=== PATIENT | female | born 1995 | race Caucasian/White ===

== ENCOUNTER 2017-04-06 10:38 | Emergency (ER) | payer MEDICAID ==
[~2017-04-06] VITALS: Ht 162.6 cm; Wt 87.5 kg
[2017-04-06 10:43] VITALS: BP 130/79
--- NOTE | 2017-04-06 10:48 | NUR ---
PT AMBULATED TO BED 3
--- NOTE | 2017-04-06 11:02 | NUR ---
RECEIVED PT TO ROOM 3, IN NAD. RESP EVEN AND UNLABORED. AGREE WITH TRIAGE NOTE VAGINAL BLEEDING STARTING THIS MORNING; SCANT BLOOD WHEN SHE WIPES; 6 WEEKS ; G-3 P-1 A-1 (MISCARRIAGE) HX DENIES LMP 02/20/17
--- NOTE | 2017-04-06 11:19 | NUR ---
ER MD AT BEDSIDE FOR EXAM
[2017-04-06 11:50] LABS: BASOPHILS # (AUTO) 0.2 K/uL (0.00-0.22); BASOPHILS % (AUTO) 4.2 % (0.0-2.0); EOSINOPHILS # (AUTO) 0.1 K/uL (0-0.4); EOSINOPHILS % (AUTO) 1.5 % (0.0-4.0); HEMATOCRIT 34.2 % (36-48); HEMOGLOBIN 11.4 g/dL (12.0-16.0); LYMPHOCYTES # (AUTO) 1.3 K/uL (2.5-16.5); LYMPHOCYTES % (AUTO) 26.9 % (20.5-51.1); MEAN CORPUSCULAR HEMOGLOBIN 31 pg (27-31); MEAN CORPUSCULAR HGB CONC 33 g/dL (33-37); MEAN CORPUSCULAR VOLUME 92 fL (80-94); MONOCYTES # (AUTO) 0.2 K/uL (0.8-1.0); NEUTROPHILS # (AUTO) 3.2 K/uL (1.8-7.7); NEUTROPHILS % (AUTO) 62.4 % (42.2-75.2); PLATELET COUNT (AUTO) 256 K/uL (140-450); RED BLOOD CELL COUNT(AUTO) 3.73 MIL/uL (4.20-5.40); RED CELL DISTRIBUTION WIDTH 11.4 % (11.6-13.7)
[2017-04-06 11:52] LABS: APPEARANCE,URINE CLEAR (CLEAR); BILIRUBIN,URINE NEGATIVE (NEGATIVE); BLOOD, URINE 3+ (NEGATIVE); COLOR,URINE YELLOW (YELLOW); LEUKOCYTE ESTERASE ,URINE NEGATIVE (NEGATIVE); NITRITE, URINE NEGATIVE (NEGATIVE); UGLUCOSE NEGATIVE (NEGATIVE)
[2017-04-06 11:58] LABS: RBC,URINE 3-10 (FEW) /HPF (0-5)
--- NOTE | 2017-04-06 12:56 | NUR ---
DR PANG AT BEDSIDE FOR PELVIC EXAM, FEMALE IMPROVEMENT INTERN PRESENT.
--- NOTE | 2017-04-06 12:56 | NUR ---
FEMALE BARREL RACER FOR DR. PANG DURING PELVIC EXAM
--- NOTE | 2017-04-06 13:38 | NUR ---
NO ACUTE CHNAGES IN CONDITION, VSS. WAITNG FOR DISPO
[2017-04-06 14:35] VITALS: BP 126/74
--- NOTE | 2017-04-06 14:35 | NUR ---
Patient discharged with v/s stable. Written and verbal after care instructions given and explained. Patient verbalized understanding. Ambulatory with steady gait. All questions addressed prior to discharge. Advised to follow up with PMD. PT INFORMED TO COME IN 3 DAYS FOR BLOOD TEST, VERBALIZED UNDERSTANDING. VSS
== END 2017-04-06 14:35 | disposition home or self-care (01) ==
LOC: MED 10:38
DX: O20.0 Threatened abortion (principal); Z3A.01 Less than 8 weeks gestation of pregnancy
CPT/HCPCS: 36415; 76817; 81001; 81025; 84702; 85025; 87086; 99285; Q0092

== ENCOUNTER 2017-04-09 12:16 | Emergency (ER) | payer MEDICAID ==
[~2017-04-09] VITALS: Ht 162.6 cm; Wt 89.0 kg
[2017-04-09 12:57] VITALS: BP 122/54
[2017-04-09 14:23] VITALS: BP 110/63
== END 2017-04-09 14:23 | disposition home or self-care (01) ==
LOC: MED 12:16
DX: O20.0 Threatened abortion (principal); Z3A.00 Weeks of gestation of pregnancy not specified
CPT/HCPCS: 36415; 81025; 84702; 99283

== ENCOUNTER 2017-04-13 13:45 | Emergency (ER) | payer MEDICAID ==
[~2017-04-13] VITALS: Ht 162.6 cm; Wt 86.2 kg
[2017-04-13 13:47] VITALS: BP 104/54
[2017-04-13 14:21] LABS: BASOPHILS # (AUTO) 0.2 K/uL (0.00-0.22); EOSINOPHILS # (AUTO) 0.1 K/uL (0-0.4); HEMATOCRIT 35.6 % (36-48); HEMOGLOBIN 12.5 g/dL (12.0-16.0); LYMPHOCYTES # (AUTO) 1.5 K/uL (2.5-16.5); MEAN CORPUSCULAR HEMOGLOBIN 31 pg (27-31); MEAN CORPUSCULAR HGB CONC 35 g/dL (33-37); MEAN CORPUSCULAR VOLUME 90 fL (80-94); MONOCYTES # (AUTO) 0.4 K/uL (0.8-1.0); NEUTROPHILS # (AUTO) 3.6 K/uL (1.8-7.7); PLATELET COUNT (AUTO) 278 K/uL (140-450); RED BLOOD CELL COUNT(AUTO) 3.97 MIL/uL (4.20-5.40); RED CELL DISTRIBUTION WIDTH 11.6 % (11.6-13.7); WHITE BLOOD COUNT (AUTO) 5.9 K/uL (4.8-10.8)
[2017-04-13 15:35] VITALS: BP 110/73
== END 2017-04-13 15:35 | disposition home or self-care (01) ==
LOC: MED 13:45
DX: Z32.01 Encounter for pregnancy test, result positive (principal)
CPT/HCPCS: 36415; 81002; 81025; 84702; 85025; 99284

== ENCOUNTER 2017-04-27 19:29 | Emergency (ER) | payer MEDICAID ==
[~2017-04-27] VITALS: Ht 162.6 cm; Wt 89.4 kg
[2017-04-27 19:54] VITALS: BP 113/62
[2017-04-27 20:28] LABS: BASOPHILS # (AUTO) 0.3 K/uL (0.00-0.22); EOSINOPHILS # (AUTO) 0.2 K/uL (0-0.4); HEMATOCRIT 35.9 % (36-48); HEMOGLOBIN 12.2 g/dL (12.0-16.0); LYMPHOCYTES # (AUTO) 1.4 K/uL (2.5-16.5); MEAN CORPUSCULAR HEMOGLOBIN 31 pg (27-31); MEAN CORPUSCULAR HGB CONC 34 g/dL (33-37); MEAN CORPUSCULAR VOLUME 91 fL (80-94); MONOCYTES # (AUTO) 0.5 K/uL (0.8-1.0); NEUTROPHILS # (AUTO) 4.7 K/uL (1.8-7.7); PLATELET COUNT (AUTO) 267 K/uL (140-450); RED BLOOD CELL COUNT(AUTO) 3.93 MIL/uL (4.20-5.40); RED CELL DISTRIBUTION WIDTH 11.6 % (11.6-13.7); WHITE BLOOD COUNT (AUTO) 7.1 K/uL (4.8-10.8)
--- NOTE | 2017-04-27 20:30 | NUR ---
Pt presents to ED with vaginal bleeding and lower abdominal pain x3 hars. Pt states pain radiates to lower back and that she passed a bloody mass x3 hrs ago. Pt states continuous spotting. Pt denies trauma. Postioned in bed for comfort. Boyfriend at bedside for comfort. ER MD aware. Continue to monitor.
--- NOTE | 2017-04-27 20:31 | NUR ---
PT TAKEN TO BED 1
[2017-04-27 20:44] LABS: ALBUMIN 3.7 g/dL (3.4-5.0); POTASSIUM 3.4 mmol/L (3.5-5.1)
[2017-04-27 20:55] LABS: ANION GAP 8.7 (8-16); CARBON DIOXIDE 27.7 mmol/L (21-32); CREATININE 0.6 mg/dL (0.6-1.3); TOTAL BILIRUBIN 0.2 mg/dL (0.0-1.0)
[2017-04-27 21:17] LABS: BILIRUBIN,URINE NEGATIVE (NEGATIVE); BLOOD, URINE 3+ (NEGATIVE); LEUKOCYTE ESTERASE ,URINE NEGATIVE (NEGATIVE); NITRITE, URINE NEGATIVE (NEGATIVE); UGLUCOSE NEGATIVE (NEGATIVE)
[2017-04-27 21:19] LABS: APPEARANCE,URINE BLOODY (CLEAR); COLOR,URINE RED (YELLOW)
[2017-04-27 21:20] LABS: RBC,URINE TOO NUMEROUS TO COUN /HPF (0-5); WBC,URINE NONE SEEN /HPF (0-5)
--- NOTE | 2017-04-27 21:33 | NUR ---
Dr. Bellamy evaluating patient.
[2017-04-27 23:50] VITALS: BP 108/68
== END 2017-04-27 23:58 | disposition home or self-care (01) ==
LOC: MED 19:29
DX: O03.9 Complete or unspecified spontaneous abortion without complication (principal)
CPT/HCPCS: 36415; 76801; 80053; 81001; 81025; 84702; 84703; 85025; 86886; 86900; 86901; 99285

== ENCOUNTER 2018-01-18 19:51 | Emergency (ER) | payer MEDICAID ==
[~2018-01-18] VITALS: Ht 162.6 cm; Wt 81.6 kg
[2018-01-18 19:55] VITALS: BP 137/67
[2018-01-18 21:17] LABS: BASOPHILS % (AUTO) 0.4 % (0.0-2.0); EOSINOPHILS # (AUTO) 0.2 K/uL (0-0.4); EOSINOPHILS % (AUTO) 2.5 % (0.0-4.0); HEMATOCRIT 34.8 % (36-48); HEMOGLOBIN 11.9 g/dL (12.0-16.0); LYMPHOCYTES # (AUTO) 2.1 K/uL (2.5-16.5); MEAN CORPUSCULAR HEMOGLOBIN 31 pg (27-31); MEAN CORPUSCULAR HGB CONC 34 g/dL (33-37); MONOCYTES # (AUTO) 0.5 K/uL (0.8-1.0); MONOCYTES % (AUTO) 5.6 % (1.7-9.3); NEUTROPHILS # (AUTO) 5.8 K/uL (1.8-7.7); NEUTROPHILS % (AUTO) 67.5 % (42.2-75.2); PLATELET COUNT (AUTO) 245 K/uL (140-450); RED BLOOD CELL COUNT(AUTO) 3.87 MIL/uL (4.20-5.40); RED CELL DISTRIBUTION WIDTH 12.8 % (11.6-13.7); WHITE BLOOD COUNT (AUTO) 8.6 K/uL (4.8-10.8)
[2018-01-18 21:43] LABS: APPEARANCE,URINE HAZY (CLEAR); BILIRUBIN,URINE NEGATIVE (NEGATIVE); BLOOD, URINE NEGATIVE (NEGATIVE); COLOR,URINE YELLOW (YELLOW); LEUKOCYTE ESTERASE ,URINE 2+ (NEGATIVE); NITRITE, URINE NEGATIVE (NEGATIVE); UGLUCOSE NEGATIVE (NEGATIVE)
[2018-01-18 22:03] LABS: RBC,URINE NONE SEEN /HPF (0-5); WBC,URINE 20-60 /HPF (0-5)
[2018-01-19 00:27] VITALS: BP 100/51
== END 2018-01-19 00:27 | disposition home or self-care (01) ==
LOC: MED 19:51
DX: O20.0 Threatened abortion (principal); O23.41 Unspecified infection of urinary tract in pregnancy, first trimester; Z3A.08 8 weeks gestation of pregnancy
CPT/HCPCS: 36415; 76801; 76802; 81001; 81025; 84702; 85025; 86900; 86901; 87086; 99284; Q0092